=== PATIENT | male | born 1980 | race Caucasian/White ===

== ENCOUNTER 2016-08-24 14:43 | Emergency (ER) | payer SELFPAY | END 2016-08-24 20:55 | disposition home or self-care (01) | LOC: ER 14:43 | DX: R07.89 Other chest pain (principal); I50.21 Acute systolic (congestive) heart failure; F17.200 Nicotine dependence, unspecified, uncomplicated | CPT/HCPCS: 36415; 71020; 80053; 82553; 83735; 83880; 84484; 85025; 85610; 85730; 93005 ==